=== PATIENT | female | born 1985 | race Caucasian/White ===

== ENCOUNTER 2017-03-07 10:45 | Day surgery (SDC) | payer MEDICAID, OTHER ==
[~2017-03-07 10:45] MED LIST: Lactated Ringers 1,000 ML IV SCH
[2017-03-07] MEDS ORDERED: Ondansetron 4 MG/2 ML SDV ONE (11:51)
[2017-03-07] MEDS ORDERED: Propofol 200 MG/20 ML SDV ONE (11:51)
[2017-03-07 12:36] VITALS: BP 130/82
--- NOTE | 2017-03-07 19:34 | OR ---
PREOPERATIVE DIAGNOSIS: Gastroesophageal reflux disease. POSTOPERATIVE DIAGNOSIS: Gastroesophageal reflux disease. PROCEDURE PERFORMED: Esophagogastroduodenoscopy with antral biopsy. INDICATION: The patient is a 31-year-old female with history of intermittent reflux disease, presents for EGD for further diagnosis. PROCEDURE IN DETAILS: This was done in the endoscopy suite, sedation given per Anesthesia. The scope was inserted in the pharynx across the esophagus into the stomach across the pylorus in the 1st and 2nd portions of duodenum. The 1st and 2nd portions of duodenum were normal. I slowly withdrew the scope. The antrum also looked normal. I did however did 2 random biopsies for H. pylori. The scope was retroflexed. The patient had a moderate hiatal hernia present. The scope was withdrawn. The patient had moderate esophagitis present. The remaining of the esophagus was normal. DIAGNOSES: 1. Moderate esophagitis. 2. Moderate hiatal hernia. PLAN: I did recommend the patient continue her PPI that was previously prescribed, however did recommend she take this on a daily basis to help better control her symptoms. If this does at some point fail to control symptoms, she would be a reasonable candidate for fundoplication. BKD: 03/07/2017 12:28:32 MODL: 03/07/2017 16:37:29 /[id number]
== END 2017-03-07 13:10 | disposition home or self-care (01) ==
LOC: VM.SDS 10:45
PROVIDERS: ATTEND Surgery
DX: K20.9 Esophagitis, unspecified (principal); K44.9 Diaphragmatic hernia without obstruction or gangrene; Z88.1 Allergy status to other antibiotic agents; Z88.8 Allergy status to other drugs, medicaments and biological substances; Z79.899 Other long term (current) drug therapy; F17.210 Nicotine dependence, cigarettes, uncomplicated
CPT/HCPCS: 43239; J2405; J2704; J7120

== ENCOUNTER 2017-05-08 13:47 | Emergency (ER) | payer MEDICAID ==
[2017-05-08 13:56] VITALS: BP 120/83
--- NOTE | 2017-05-08 14:06 | EDM.PDOC ---
ED HPI GENERAL MEDICAL PROBLEM - General Chief Complaint: Genitourinary Problem Stated Complaint: BLADDER INFECTION Time Seen by Provider: 05/08/17 14:01 Source of Information: Reports: Patient History Limitations: Reports: No Limitations - History of Present Illness INITIAL COMMENTS - FREE TEXT/NARRATIVE: Patient has had burning sensation with lower pelvic pain during urination for the last 3 days and it has not gotten better. She has tried cranberry pills and drinking plenty of water but the symptoms seem to be getting worse so she is in the emergency room to see if she has urinary tract infection. She also is having some pain in the pelvic area in her posterior back side also. 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 (see below) (She has tried cranberry pills which have not helped with her symptoms.) - Related Data Allergies Allergy/AdvReac Type Severity Reaction Status Date / Time amoxicillin [From Augmentin] Allergy Diarrhea Verified 05/08/17 14:14 cefdinir Allergy Stomach Verified 05/08/17 14:14 Upset clavulanic acid Allergy Diarrhea Verified 05/08/17 14:14 [From Augmentin] diphenhydramine HCl Allergy Cannot Verified 05/08/17 14:14 [From Benadryl] Remember altaryl Allergy Nausea and Uncoded 03/07/17 11:52 Vomiting Home Meds: Home Meds Acetaminophen [Mapap] 1,000 mg PO QID PRN 02/28/17 [History] Fexofenadine/Pseudoephedrine [Lyn-D 12 Hour] 1 tab PO DAILY 02/28/17 [ History] Ibuprofen 800 mg PO 03/07/17 [History] Past Medical History HEENT History: Reports: Other (See Below) Other HEENT History: deviated nasal septum. L EAR RECONSTRUCTION Cardiovascular History: Reports: None Respiratory History: Reports: None Gastrointestinal History: Reports: GERD Genitourinary History: Reports: None [employer] MEMBER History: Reports: Musculoskeletal History: Reports: None Neurological History: Reports: None Psychiatric History: Reports: None Endocrine/Metabolic History: Reports: None Hematologic History: Reports: Anesthesia Reaction Other Hematologic History: Nausea and vomiting after anesthesia Oncologic (Cancer) History: Reports: None Dermatologic History: Reports: None - Past Surgical History Head Surgeries/Procedures: Reports: None Female Surgical History: Reports: None, Section, Tubal Ligation Neurological Surgical History: Reports: None Musculoskeletal Surgical History: Reports: None Social & Family History - Tobacco Use Smoking Status *Q: Current Every Day Smoker Years of Tobacco use: 22 Packs/Tins Daily: 0.5 Used Tobacco, but Quit: Yes Second Hand Smoke Exposure: No - Caffeine Use Caffeine Use: Reports: Coffee - Alcohol Use Days Per Week of Alcohol Use: 1 Number of Drinks Per Day: 2 Total Drinks Per Week: 2 - Recreational Drug Use Recreational Drug Use: No Drug Use in Last 12 Months: No ED ROS GENERAL - Review of Systems Review Of Systems: ROS reveals no pertinent complaints other than HPI. Constitutional: Reports: No Symptoms HEENT: Reports: No Symptoms Respiratory: Denies: Shortness of Breath, Cough Cardiovascular: Denies: Chest Pain, Edema, Lightheadedness Endocrine: Reports: No Symptoms GI/Abdominal: Reports: Other (She is having pelvic pain with urination for the last 3 days.) : Reports: Dysuria, Frequency, Other (She also has a burning sensation with urination.) Musculoskeletal: Reports: No Symptoms Skin: Reports: No Symptoms Neurological: Denies: Confusion, Dizziness, Headache Psychiatric: Reports: No Symptoms ED EXAM, GENERAL - Physical Exam Exam: See Below Exam Limited By: No Limitations General Appearance: Alert, No Apparent Distress Head: Normocephalic Neck: Full Range of Motion Respiratory/Chest: No Respiratory Distress, Lungs Clear, Normal Breath Sounds. No: Crackles, Rales, Rhonchi, Wheezing Cardiovascular: Regular Rate, Rhythm, No Edema, No JVD, No Murmur Peripheral Pulses: 2+: Radial (L), Radial (R) GI/Abdominal: Normal Bowel Sounds, Soft, Non-Tender, No Organomegaly, No Distention Back Exam: Normal Inspection, Full Range of Motion. No: CVA Tenderness (L), CVA Tenderness (R) Extremities: Normal Range of Motion Neurological: Alert, Oriented, CN II-XII Intact Psychiatric: Normal Affect, Normal Mood Skin Exam: Warm, Dry, Intact, Normal Color, No Rash Lymphatic: No Adenopathy Course - Vital Signs Last Recorded V/S: Last Vital Signs Temp 36.8 C 05/08/17 13:53 Pulse 79 05/08/17 13:53 Resp 16 05/08/17 13:53 BP 120/83 05/08/17 13:53 Pulse Ox 100 05/08/17 13:53 - Orders/Labs/Meds Orders: Active Orders 24 hr Category Date Time Status URINALYSIS W/MICROSCOPIC [UA W/MICROSCOPIC] [URIN] Stat Lab 05/08/17 13:59 Results Labs: Laboratory Tests 05/08/17 Range/Units 13:59 Urine Color Yellow (YELLOW) Urine Appearance Clear (CLEAR) Urine pH 7.0 (5.0-8.0) Ur Specific [place] 1.010 Urine Protein Negative (NEGATIVE) mg/dL Urine Glucose (UA) Negative (NEGATIVE) mg/dL Urine Ketones Negative (NEGATIVE) mg/dL Urine Occult Blood Negative (NEGATIVE) Urine Nitrite Negative (NEGATIVE) Urine Bilirubin Negative (NEGATIVE) Urine Urobilinogen 0.2 (0.2) EU/dL Ur Leukocyte Esterase Small H (NEGATIVE) Departure - Departure Time of Disposition: 14:15 Disposition: Home, Self-Care 01 Condition: Good Clinical Impression: UTI, Urinary tract infectious disease - Discharge Information Instructions: Urinary Tract Infection, Adult, [id number] Forms: ED Department Discharge Additional Instructions: Patient will be started on ciprofloxacin 500 mg twice a day. She is instructed if symptoms worsen or do not get better with the antibiotics to follow up with her primary care provider in the clinic. - My Orders Last 24 Hours: My Active Orders 05/08/17 13:59 URINALYSIS W/MICROSCOPIC [UA W/MICROSCOPIC] [URIN] Stat - Assessment/Plan Last 24 Hours: My Active Orders 05/08/17 13:59 URINALYSIS W/MICROSCOPIC [UA W/MICROSCOPIC] [URIN] Stat
[2017-05-08] MEDS ORDERED: Take Home: Ciprofloxacin 500 MG Tab, 2 Tab Pack PO ONE (14:15)
== END 2017-05-08 14:30 | disposition home or self-care (01) ==
LOC: VM.ED 13:47
DX: N39.0 Urinary tract infection, site not specified (principal); F17.210 Nicotine dependence, cigarettes, uncomplicated; Z88.1 Allergy status to other antibiotic agents; Z88.6 Allergy status to analgesic agent
CPT/HCPCS: 81001; 99283; A9270